=== PATIENT | female | born 1945 | race Caucasian/White ===

== ENCOUNTER → 2019-11-30 | Outpatient (CLI) | payer MEDICARE, BC ==
[~2019-11-30] MED LIST: 0.9 % SODIUM CHLORIDE 10 ML VIAL ONE; IOHEXOL 300 MG/ML 50 ML VIAL. ONE; LIDOCAINE 1% PF 30 ML VIAL. ONE; methylPREDNISolone ACETATE 80 MG/ML VIAL. ONE
[2019-11-30 12:46] VITALS: BP 129/74
== END ==
LOC: SURG 11:09
PROVIDERS: ATTEND Anesthesiology Pain Medicine
DX: M54.16 Radiculopathy, lumbar region (principal); M19.90 Unspecified osteoarthritis, unspecified site; M54.2 Cervicalgia
CPT/HCPCS: 62323; J1040; J2001; Q9967

== ENCOUNTER 2020-07-18 13:04 | Emergency (ER) | payer MEDICARE, BC ==
[~2020-07-18] VITALS: Ht 165.1 cm; Wt 72.0 kg
--- NOTE | 2020-07-18 13:32 | PHYS DOC ---
Past History Past Medical History: Diabetes Past Surgical History: Cholecystectomy, Hysterectomy, Knee Replacement, Tonsillectomy Additional Past Surgical Histo: breast reduction Additional Smoking Information: 1 PPD Alcohol Use: None General Adult EDM: Chief Complaint: FACE PROBLEM HPI: HPI: 75-year-old female coming in after she tripped and split her lip against her tooth on the floor. No loss of consciousness no other injuries. Bleeding controlled. No loose teeth or chipping to teeth Review of Systems: Review of Systems: Constitutional: Denies fever or chills Eyes: Denies change in visual acuity HENT: Denies nasal congestion or sore throat laceration to upper lip Respiratory: Denies cough or shortness of breath Cardiovascular: Denies chest pain or edema GI: Denies abdominal pain, nausea, vomiting, bloody stools or diarrhea : Denies dysuria Musculoskeletal: Denies back pain or joint pain Integument: Denies rash Neurologic: Denies headache, focal weakness or sensory changes Endocrine: Denies polyuria or polydipsia Lymphatic: Denies swollen glands Psychiatric: Denies depression or anxiety Heart Score: Risk Factors: Risk Factors: DM, Current or recent (<one month) smoker, HTN, HLP, family history of CAD, obesity. Risk Scores: Score 0 - 3: 2.5% MACE over next 6 weeks - Discharge Home Score 4 - 6: 20.3% MACE over next 6 weeks - Admit for Clinical Observation Score 7 - 10: 72.7% MACE over next 6 weeks - Early Invasive Strategies Allergies: Allergies: Allergies Coded Allergies Type Severity Reaction Last Updated Verified aspirin Allergy Severe anaphylaxis 07/18/20 Yes morphine Allergy Severe anaphylaxis 07/18/20 Yes Uncoded Allergies Type Severity Reaction Last Updated Verified PENICILLIN Allergy Severe anaphylaxis 11/30/19 REMICADE/INFLIXIMAB Allergy Severe anaphylaxis 11/30/19 WASP STINGS/VENOM Allergy Severe anaphylaxis 11/30/19 Physical Exam: PE: Constitutional: Well developed, well nourished, no acute distress, non-toxic appearance. [] HENT: Normocephalic, atraumatic, bilateral external ears normal, oropharynx moist, no oral exudates, nose normal. [] Small laceration to upper lip, does not cross vermilion border, approximately 7 mm wide, about 4 mm deep. Eyes: PERRLA, EOMI, conjunctiva normal, no discharge. [] Neck: Normal range of motion, no tenderness, supple, no stridor. [] Cardiovascular:Heart rate regular rhythm, no murmur [] Lungs & Thorax: Bilateral breath sounds clear to auscultation [] Abdomen: Bowel sounds normal, soft, no tenderness, no masses, no pulsatile masses. [] Skin: Warm, dry, no erythema, no rash. [] Back: No tenderness, no CVA tenderness. [] Extremities: No tenderness, no cyanosis, no clubbing, ROM intact, no edema. [] Neurologic: Alert and oriented X 3, normal motor function, normal sensory function, no focal deficits noted. [] Psychologic: Affect normal, judgement normal, mood normal. [] Current Patient Data: Vital Signs: Vital Signs Date Time Temp Pulse Resp B/P (MAP) Pulse Ox O2 Delivery O2 Flow Rate FiO2 07/18/20 13:13 97.7 65 18 163/98 (119) 95 Room Air EKG: EKG: [] Radiology/Procedures: Radiology/Procedures: [] Course & Med Decision Making: Course & Med Decision Making Discussed with patient closing versus letting heal by secondary intention. She notes it is less than a centimeter and does not questionably border discussed with patient the wound will heal well on its own. Patient eager to leave because she has had another doctor's appointment coming up shortly Aamir Disclaimer: Aamir Disclaimer: This electronic medical record was generated, in whole or in part, using a voice recognition dictation system. Departure Departure: Impression: Primary Impression: Lip laceration Disposition: 01 DC HOME SELF CARE/HOMELESS Condition: STABLE Referrals: SUDEEP SILVA MD (PCP) Patient Instructions: Mouth Injury, Generic GLEN MCCALL MD Jul 18, 2020 13:32
[2020-07-18 13:45] VITALS: BP 166/82
== END 2020-07-18 13:45 | disposition home or self-care (01) ==
LOC: ER 13:04
DX: S01.511A Laceration without foreign body of lip, initial encounter (principal); E11.9 Type 2 diabetes mellitus without complications; F17.200 Nicotine dependence, unspecified, uncomplicated; Z88.6 Allergy status to analgesic agent; Z88.5 Allergy status to narcotic agent; W22.8XXA Striking against or struck by other objects, initial encounter; Y93.89 Activity, other specified; Y92.89 Other specified places as the place of occurrence of the external cause; Y99.8 Other external cause status
CPT/HCPCS: 99284

== ENCOUNTER → 2020-08-15 | Outpatient (CLI) | payer MEDICARE, BC ==
[2020-07-18 13:45] VITALS: BP 166/82
--- NOTE | 2020-08-15 17:03 | RAD ---
Right wrist 3 views INDICATION: Wrist pain COMPARISON: None. FINDINGS: 3 views right wrist show lucency across the radial styloid process suspicious for nondisplaced fracture of indeterminate acuity. There is some edema in the soft tissues around the wrist, suggesting the fracture could be acute. No other acute osseous abnormality is identified. Alignment is anatomic. No aggressive bony lesions are seen. No radiopaque foreign body or abnormal soft tissue gas is apparent IMPRESSION: Nondisplaced subtle hairline fracture through the radial styloid process and the setting of generalized osteopenia. Left middle finger 2 views. INDICATION: Left finger pain and wrist pain FINDINGS: 2 views of the left middle finger show normal alignment with mild generalized demineralization. No fracture or aggressive appearing osseous lesions are seen. No abnormal soft tissue gas or radiopaque foreign body. IMPRESSION: Osteopenia. Otherwise negative left middle finger x-rays. Electronically signed by: Jenny Brambila MD (08/15/2020 5:01 PM) [id number]
== END ==
LOC: DXRAD 13:10
PROVIDERS: ATTEND Specialist
DX: M85.88 Other specified disorders of bone density and structure, other site (principal)
CPT/HCPCS: 73110; 73140

== ENCOUNTER → 2020-12-15 | Outpatient (CLI) | payer MEDICARE, BC ==
--- NOTE | 2020-12-15 17:00 | RAD ---
History: Reason: RT LEG PAIN / Spl. Instructions: / History: Technique: Ultrasound was utilized to calculate an ankle brachial index. Findings: Right: Right brachial pressure 126 mmHg Right ankle pressure 154 mmHg Right ankle CATHY 1.1 Left: Left brachial pressure 134 mmHg Left ankle pressure 144 mmHg Left ankle CATHY 1.1 Impression: Ankle-brachial index is 1.1 bilaterally which is within normal limits. Electronically signed by: Carroll Valdivia MD (12/15/2020 4:58 PM) [id number]
== END ==
LOC: US 14:43
PROVIDERS: ATTEND Specialist
DX: M79.604 Pain in right leg (principal)
CPT/HCPCS: 93922